=== PATIENT | female | born 1940 | race Caucasian/White ===

== ENCOUNTER → 2017-04-29 | Outpatient (CLI) | payer MEDICARE, BC | LOC: MC.RAD 08:11 | DX: Z12.31 Encounter for screening mammogram for malignant neoplasm of breast (principal) ==

== ENCOUNTER → 2018-08-05 | Outpatient (CLI) | payer MEDICARE, BC | LOC: MC.RAD 08:07 | DX: Z12.31 Encounter for screening mammogram for malignant neoplasm of breast (principal) ==

== ENCOUNTER → 2020-06-14 | Outpatient (CLI) | payer MEDICARE, BC | LOC: COL.RAD 15:19 | DX: R22.2 Localized swelling, mass and lump, trunk (principal) ==

== ENCOUNTER → 2020-07-04 | Outpatient (CLI) | payer MEDICARE, BC ==
[~2020-07-04] VITALS: Ht 165.1 cm; Wt 68.6 kg
[~2020-07-04] MED LIST: CHONDROITIN/GLU1 SGL PO; COZAAR 50MG50 MG/TAB PO; FOSAMAX 70MG TA70 MG PO; LIPITOR 40MG TA40 MG PO; SYNTHROID0.075 MG/T PO
[2020-07-04 12:33] VITALS: BP 129/82; PULSE 91
[2020-07-04 13:57] VITALS: BP 134/84; PULSE 85
== END ==
LOC: COL.RAD 11:30
DX: E04.1 Nontoxic single thyroid nodule (principal)
CPT/HCPCS: Q9967

== ENCOUNTER → 2021-06-18 | Outpatient (CLI) | payer MEDICARE, BC | LOC: COL.RAD 14:53 | DX: E04.1 Nontoxic single thyroid nodule (principal) ==